=== PATIENT | female | born 1990 | race Caucasian/White ===

== ENCOUNTER 2017-05-31 20:33 | Day surgery (SDC) | payer BC ==
[2017-05-31] MEDS ORDERED: HYDROmorphone 0.5 MG/0.5 ML SYRINGE IVPUSH ONE (20:57)
[2017-05-31] MEDS ORDERED: Sodium Chloride 0.9% 10 ML Syringe FLUSH PRN ×2 (20:57→23:49)
[2017-05-31] MEDS ORDERED: Sodium Chloride 0.9% 1,000 ML IV ONE (20:57)
[2017-05-31] MEDS ORDERED: Ondansetron 4 MG/2 ML SDV IVPUSH ONE (20:58)
--- NOTE | 2017-05-31 21:13 | EDM.PDOC ---
ED HPI GENERAL MEDICAL PROBLEM - General Chief Complaint: Abdominal Pain Stated Complaint: RIGHT QUADRANT PAIN Time Seen by Provider: 05/31/17 20:59 Source of Information: Reports: Patient History Limitations: Reports: No Limitations - History of Present Illness INITIAL COMMENTS - FREE TEXT/NARRATIVE: Patient is a 27-year-old female presents ED complaining of right middle lower quadrant abdominal pain. Patient states pain started 2 days ago with no known provoking activities. Pain is described as sharp dull throbbing in nature. Increases with palpation, bending over, lifting her right leg, and walking. Pain is minimally improved with resting. She is mildly nauseated after eating. There has been no documented fever or diarrhea. She denies any pain with urination as well as any abnormal vaginal discharge. She has no history of kidney stones or recurrences. She is concerned that she may have appendicitis. Pain is moderate intensity at this point. Has not taken any medications for the discomfort. She has no additional past medical history and currently taking control pills. Last menstrual cycle was the end of this past month. Surgical history noncontributory. Right Abdominal Pain Score (Numeric/FACES): 4 - Related Data Allergies Allergy/AdvReac Type Severity Reaction Status Date / Time Sulfa (Sulfonamide Allergy Rash Verified 05/31/17 20:46 Antibiotics) Home Meds: Home Meds Levonorgestrel-Ethin Estradiol [Lessina-28 Tablet] 1 tab PO DAILY 05/31/17 [ History] Past Medical History - Past Surgical History Musculoskeletal Surgical History: Reports: Other (See Below) Other Musculoskeletal Surgeries/Procedures:: knee surgery Social & Family History - Family History Family Medical History: Noncontributory - Tobacco Use Smoking Status *Q: Never Smoker - Caffeine Use Caffeine Use: Reports: Coffee - Recreational Drug Use Recreational Drug Use: No ED ROS GENERAL - Review of Systems Review Of Systems: ROS reveals no pertinent complaints other than HPI. ED EXAM, GI/ABD - Physical Exam Exam: See Below Exam Limited By: No Limitations General Appearance: Alert, WD/WN, No Apparent Distress Ears: Hearing Grossly Normal Nose: Normal Inspection Throat/Mouth: Normal Inspection, Normal Oropharynx, Normal Voice, No Airway Compromise Neck: Normal Inspection, Supple Respiratory/Chest: No Respiratory Distress, Lungs Clear, Normal Breath Sounds, No Accessory Muscle Use Cardiovascular: Normal Peripheral Pulses, Regular Rate, Rhythm GI/Abdominal Exam: Normal Bowel Sounds, Soft, No Organomegaly, No Distention, Rebound (McBurney's point), Tender (McBurney's point). No: Guarding Back Exam: Normal Inspection Neurological: Alert, Oriented, CN II-XII Intact, Normal Cognition, No Motor/ Sensory Deficits Psychiatric: Normal Affect, Normal Mood Skin Exam: Warm, Dry, Intact, Normal Color Course - Vital Signs Last Recorded V/S: Last Vital Signs Temp 98.5 F 05/31/17 20:47 Pulse 65 05/31/17 20:47 Resp 18 05/31/17 20:47 BP 126/76 05/31/17 20:47 Pulse Ox 100 05/31/17 20:47 - Orders/Labs/Meds Orders: Active Orders 24 hr Category Date Time Status Peripheral IV Care [RC] . DIRECTED Care 05/31/17 20:57 Active Abdomen Pelvis w Cont [CT] Stat Exams 05/31/17 21:08 Taken Sodium Chloride 0.9% [Normal Saline] 1,000 ml Med 05/31/17 20:57 Active IV ONETIME Sodium Chloride 0.9% [Saline Flush] Med 05/31/17 20:57 Active 10 ml FLUSH ASDIRECTED PRN Peripheral IV Insertion Adult [OM.PC] Stat Oth 05/31/17 20:57 Ordered Medication Orders Sodium Chloride (Normal Saline) 1,000 mls @ 250 mls/hr IV ONETIME ONE Stop: 06/01/17 00:56 Last Admin: 05/31/17 21:31 Dose: 250 mls/hr Sodium Chloride (Saline Flush) 10 ml FLUSH ASDIRECTED PRN PRN Reason: Keep Vein Open Last Admin: 05/31/17 23:01 Dose: 10 ml Labs: Laboratory Tests 05/31/17 05/31/17 05/31/17 Range/Units 21:21 21:21 21:21 WBC 5.92 (3.98-10.04) K/mm3 RBC 4.04 (3.98-5.22) M/mm3 Hgb 12.1 (11.2-15.7) gm/L Hct 37.1 (34.1-44.9) % MCV 91.8 (79.4-94.8) fl MCH 30.0 (25.6-32.2) pg MCHC 32.6 (32.2-35.5) g/dl RDW Std Deviation 43.9 (36.4-46.3) fL Plt Count 268 (182-369) K/mm3 MPV 9.2 L (9.4-12.3) fl Neut % (Auto) 56.6 (34.0-71.1) % Lymph % (Auto) 31.8 (19.3-51.7) % Maverick % (Auto) 9.5 (4.7-12.5) % Eos % (Auto) 1.4 (0.7-5.8) Baso % (Auto) 0.7 (0.1-1.2) % Neut # (Auto) 3.36 (1.56-6.13) K/mm3 Lymph # (Auto) 1.88 (1.18-3.74) K/mm3 Maverick # (Auto) 0.56 H (0.24-0.36) K/mm3 Eos # (Auto) 0.08 (0.04-0.36) K/mm3 Baso # (Auto) 0.04 (0.01-0.08) K/mm3 Sodium 141 (136-145) mEq/L Potassium 3.8 (3.5-5.1) mEq/L Chloride 104 (98-107) mEq/L Carbon Dioxide 27 (21-32) mEq/L Anion Gap 13.8 (5-15) BUN 15 (7-18) mg/dL Creatinine 0.9 (0.55-1.02) mg/dL Est Cr Clr Drug Dosing 89.96 mL/min Estimated GFR (MDRD) > 60 (>60) mL/min BUN/Creatinine Ratio 16.7 (14-18) Glucose 96 (74-106) mg/dL Calcium 8.8 (8.5-10.1) mg/dL Total Bilirubin 0.3 (0.2-1.0) mg/dL AST 16 (15-37) U/L ALT 20 (14-59) U/L Alkaline Phosphatase 49 (46-116) U/L C-Reactive Protein 9.5 H* (<1.0) mg/dL Total Protein 7.1 (6.4-8.2) g/dl Albumin 3.2 L (3.4-5.0) g/dl Globulin 3.9 gm/dL Albumin/Globulin Ratio 0.8 L (1-2) HCG, Qual Negative (NEGATIVE) Urine Color (Yellow) Urine Appearance (Clear) Urine pH (5.0-8.0) Ur Specific [place] (1.005-1.030) Urine Protein (Negative) Urine Glucose (UA) (Negative) Urine Ketones (Negative) Urine Occult Blood (Negative) Urine Nitrite (Negative) Urine Bilirubin (Negative) Urine Urobilinogen (0.2-1.0) Ur Leukocyte Esterase (Negative) Urine RBC (0-5) /hpf Urine WBC (0-5) /hpf Ur Epithelial Cells (0-5) /hpf Urine Bacteria (FEW) /hpf Urine Mucus (FEW) /hpf 05/31/17 Range/Units 22:45 WBC (3.98-10.04) K/mm3 RBC (3.98-5.22) M/mm3 Hgb (11.2-15.7) gm/L Hct (34.1-44.9) % MCV (79.4-94.8) fl MCH (25.6-32.2) pg MCHC (32.2-35.5) g/dl RDW Std Deviation (36.4-46.3) fL Plt Count (182-369) K/mm3 MPV (9.4-12.3) fl Neut % (Auto) (34.0-71.1) % Lymph % (Auto) (19.3-51.7) % Maverick % (Auto) (4.7-12.5) % Eos % (Auto) (0.7-5.8) Baso % (Auto) (0.1-1.2) % Neut # (Auto) (1.56-6.13) K/mm3 Lymph # (Auto) (1.18-3.74) K/mm3 Ma[place]ick # (Auto) (0.24-0.36) K/mm3 Eos # (Auto) (0.04-0.36) K/mm3 Baso # (Auto) (0.01-0.08) K/mm3 Sodium (136-145) mEq/L Potassium (3.5-5.1) mEq/L Chloride (98-107) mEq/L Carbon Dioxide (21-32) mEq/L Anion Gap (5-15) BUN (7-18) mg/dL Creatinine (0.55-1.02) mg/dL Est Cr Clr Drug Dosing mL/min Estimated GFR (MDRD) (>60) mL/min BUN/Creatinine Ratio (14-18) Glucose (74-106) mg/dL Calcium (8.5-10.1) mg/dL Total Bilirubin (0.2-1.0) mg/dL AST (15-37) U/L ALT (14-59) U/L Alkaline Phosphatase (46-116) U/L C-Reactive Protein (<1.0) mg/dL Total Protein (6.4-8.2) g/dl Albumin (3.4-5.0) g/dl Globulin gm/dL Albumin/Globulin Ratio (1-2) HCG, Qual (NEGATIVE) Urine Color Light yellow (Yellow) Urine Appearance Clear (Clear) Urine pH 7.0 (5.0-8.0) Ur Specific [place] 1.015 (1.005-1.030) Urine Protein Negative (Negative) Urine Glucose (UA) Negative (Negative) Urine Ketones Negative (Negative) Urine Occult Blood Negative (Negative) Urine Nitrite Negative (Negative) Urine Bilirubin Negative (Negative) Urine Urobilinogen 0.2 (0.2-1.0) Ur Leukocyte Esterase Negative (Negative) Urine RBC 0-5 (0-5) /hpf Urine WBC 0-5 (0-5) /hpf Ur Epithelial Cells 0-5 (0-5) /hpf Urine Bacteria Few (FEW) /hpf Urine Mucus Not seen (FEW) /hpf Meds: Medications Generic Name Dose Route Start Last Admin Trade Name Freq PRN Reason Stop Dose Admin Sodium Chloride 1,000 mls @ 250 mls/hr 05/31/17 20:57 05/31/17 21:31 Normal Saline IV 06/01/17 00:56 250 mls/hr ONETIME ONE Administration Sodium Chloride 10 ml 05/31/17 20:57 05/31/17 23:01 Saline Flush FLUSH 10 ml ASDIRECTED PRN Administration Keep Vein Open Discontinued Medications Generic Name Dose Route Start Last Admin Trade Name Freq PRN Reason Stop Dose Admin Diatrizoate Meglum/Diatrizoate Sod 90 ml 05/31/17 22:46 05/31/17 23:01 Gastrografin 37% PO 05/31/17 22:47 90 ml ONETIME ONE Administration Hydromorphone HCl 0.5 mg 05/31/17 20:57 05/31/17 21:34 Dilaudid IVPUSH 05/31/17 20:58 0.5 mg ONETIME ONE Administration Hydromorphone HCl 0.5 mg 05/31/17 21:45 05/31/17 22:02 Dilaudid IVPUSH 05/31/17 21:46 Not Given ONETIME ONE Iopamidol 125 ml 05/31/17 22:46 05/31/17 23:01 Isovue-300 (61%) IVPUSH 05/31/17 22:47 125 ml ONETIME ONE Administration Ondansetron HCl 4 mg 05/31/17 20:58 05/31/17 21:32 Zofran IVPUSH 05/31/17 20:59 4 mg ONETIME ONE Administration - Re-Assessments/Exams Free Text/Narrative Re-Assessment/Exam: IV started with normal saline 250 mL per hour, 0.5 mg of Dilaudid IVP, and Zofran 4 mg IVP. Initial labs and studies include CBC, chem 14, CRP, hCG, UA. I have ordered a CT the abdomen and pelvis with oral and IV contrast. Oral contrast will be started Mealey. Patient has pain to the right lower quadrant along McBurney's point concerning for appendicitis. 05/31/17 22:47 Labs reviewed: CBC and chemistry panel essentially normal. CRP elevated 9.5. HCG was negative. 05/31/17 23:08 UA still pending. 05/31/17 23:36 [facility] Appendicitis no rupture. [id number] Valle network operations project manager general surgeon. He will be in shortly to see the patient. Requested OR Staff and anesthesia be contacted. Instructed nursing staff to make the phone calls. Ordered cefoxitin 2 g IV. Departure - Departure Time of Disposition: 23:44 Disposition: DC/Tfer to Critical Access 66 Condition: Fair Clinical Impression: Appendicitis Qualifiers: Appendicitis type: acute appendicitis Acute appendicitis type: with localized peritonitis Qualified Code(s): K35.3 - Acute appendicitis with localized peritonitis - Discharge Information Referrals: PCP,None [Primary Care Provider] - Forms: ED Department Discharge - My Orders Last 24 Hours: My Active Orders 05/31/17 20:57 Peripheral IV Care [RC] . DIRECTED Sodium Chloride 0.9% [Normal Saline] 1,000 ml IV ONETIME Sodium Chloride 0.9% [Saline Flush] 10 ml FLUSH ASDIRECTED PRN Peripheral IV Insertion Adult [OM.PC] Stat 05/31/17 21:08 Abdomen Pelvis w Cont [CT] Stat - Assessment/Plan Last 24 Hours: My Active Orders 05/31/17 20:57 Peripheral IV Care [RC] . DIRECTED Sodium Chloride 0.9% [Normal Saline] 1,000 ml IV ONETIME Sodium Chloride 0.9% [Saline Flush] 10 ml FLUSH ASDIRECTED PRN Peripheral IV Insertion Adult [OM.PC] Stat 05/31/17 21:08 Abdomen Pelvis w Cont [CT] Stat
[2017-05-31] MEDS ORDERED: HYDROmorphone 1 MG/ML Syringe IVPUSH ONE (21:45)
[2017-05-31] MEDS ORDERED: Iopamidol 612 MG/ML 150 ML Bottle IVPUSH ONE (22:46)
[2017-05-31] MEDS ORDERED: Diatrizoate Meglumine/Diatrizoate Sodium 37% 120 ML Bottle PO ONE (22:46)
[2017-05-31] MEDS ORDERED: cefOXitin 2 GM in Premix Bag 1 BAG IV ONE (23:43)
[2017-05-31] MEDS ORDERED: Sodium Chloride 0.9% 1,000 ML IV SCH (23:45)
[2017-06-01] MEDS ORDERED: Lidocaine 1% with EPINEPHrine 1:100,000 20 ML MDV ONE (00:11)
[2017-06-01] MEDS ORDERED: Bupivacaine 0.5%/EPINEPHrine 1:200,000 50 ML MDV ONE (00:11)
--- NOTE | 2017-06-01 00:16 | PCM.HP ---
H&P History of Present Illness - General Date of Service: 06/01/17 Source of Information: Patient, Family - History of Present Illness Initial Comments - Free Text/Narative: 27-year-old female was in her usual state of excellent health until 2 days ago when she experienced right lower quadrant abdominal discomfort. It was continuous over the next couple of days and associated with anorexia. But it was never really severe and so she ran 7 miles yesterday. Because of the persistent discomfort she presented to the emergency room and a CT scan of her abdomen and pelvis was performed. This revealed imaging features consistent with acute appendicitis. I was called to evaluate her for surgery. Right Abdominal Pain Score (Numeric/FACES): 4 - Related Data Allergies/Adverse Reactions: Allergies Allergy/AdvReac Type Severity Reaction Status Date / Time Sulfa (Sulfonamide Allergy Rash Verified 05/31/17 20:46 Antibiotics) Home Medications: Home Meds Levonorgestrel-Ethin Estradiol [Lessina-28 Tablet] 1 tab PO DAILY 05/31/17 [ History] Past Medical History - Past Surgical History Musculoskeletal Surgical History: Reports: Other (See Below) Other Musculoskeletal Surgeries/Procedures:: knee surgery Social & Family History - Family History Family Medical History: Noncontributory - Tobacco Use Smoking Status *Q: Never Smoker - Caffeine Use Caffeine Use: Reports: Coffee - Recreational Drug Use Recreational Drug Use: No H&P Review of Systems - Review of Systems: Review Of Systems: See Below Exam - Exam Exam: See Below - Vital Signs Vital Signs: Last Vital Signs Temp 36.9 C 05/31/17 20:47 Pulse 65 05/31/17 20:47 Resp 18 05/31/17 20:47 BP 126/76 05/31/17 20:47 Pulse Ox 100 05/31/17 20:47 Weight: 61.235 kg - Exam General: Alert, Oriented, Cooperative HEENT: EOMI, Hearing Intact Neck: Supple, Trachea Midline Lungs: Clear to Auscultation, Normal Respiratory Effort Cardiovascular: Regular Rate, Regular Rhythm, Normal S1, Normal S2 GI/Abdominal Exam: Normal Bowel Sounds, Tender (Right lower quadrant) (Female) Exam: Deferred Rectal (Female) Exam: Deferred Skin: Warm, Dry, Intact Neuro Extensive - Mental Status: Alert, Oriented x3, Normal Mood/Affect Psychiatric: Alert, Normal Affect, Normal Mood - Patient Data Lab Results Last 24 hrs: Laboratory Results - last 24 hr 05/31/17 05/31/17 05/31/17 Range/Units 21:21 21:21 21:21 WBC 5.92 (3.98-10.04) K/mm3 RBC 4.04 (3.98-5.22) M/mm3 Hgb 12.1 (11.2-15.7) gm/L Hct 37.1 (34.1-44.9) % MCV 91.8 (79.4-94.8) fl MCH 30.0 (25.6-32.2) pg MCHC 32.6 (32.2-35.5) g/dl RDW Std Deviation 43.9 (36.4-46.3) fL Plt Count 268 (182-369) K/mm3 MPV 9.2 L (9.4-12.3) fl Neut % (Auto) 56.6 (34.0-71.1) % Lymph % (Auto) 31.8 (19.3-51.7) % Emanuel % (Auto) 9.5 (4.7-12.5) % Eos % (Auto) 1.4 (0.7-5.8) Baso % (Auto) 0.7 (0.1-1.2) % Neut # (Auto) 3.36 (1.56-6.13) K/mm3 Lymph # (Auto) 1.88 (1.18-3.74) K/mm3 Emanuel # (Auto) 0.56 H (0.24-0.36) K/mm3 Eos # (Auto) 0.08 (0.04-0.36) K/mm3 Baso # (Auto) 0.04 (0.01-0.08) K/mm3 Sodium 141 (136-145) mEq/L Potassium 3.8 (3.5-5.1) mEq/L Chloride 104 (98-107) mEq/L Carbon Dioxide 27 (21-32) mEq/L Anion Gap 13.8 (5-15) BUN 15 (7-18) mg/dL Creatinine 0.9 (0.55-1.02) mg/dL Est Cr Clr Drug Dosing 89.96 mL/min Estimated GFR (MDRD) > 60 (>60) mL/min BUN/Creatinine Ratio 16.7 (14-18) Glucose 96 (74-106) mg/dL Calcium 8.8 (8.5-10.1) mg/dL Total Bilirubin 0.3 (0.2-1.0) mg/dL AST 16 (15-37) U/L ALT 20 (14-59) U/L Alkaline Phosphatase 49 (46-116) U/L C-Reactive Protein 9.5 H* (<1.0) mg/dL Total Protein 7.1 (6.4-8.2) g/dl Albumin 3.2 L (3.4-5.0) g/dl Globulin 3.9 gm/dL Albumin/Globulin Ratio 0.8 L (1-2) HCG, Qual Negative (NEGATIVE) Urine Color (Yellow) Urine Appearance (Clear) Urine pH (5.0-8.0) Ur Specific [place] (1.005-1.030) Urine Protein (Negative) Urine Glucose (UA) (Negative) Urine Ketones (Negative) Urine Occult Blood (Negative) Urine Nitrite (Negative) Urine Bilirubin (Negative) Urine Urobilinogen (0.2-1.0) Ur Leukocyte Esterase (Negative) Urine RBC (0-5) /hpf Urine WBC (0-5) /hpf Ur Epithelial Cells (0-5) /hpf Urine Bacteria (FEW) /hpf Urine Mucus (FEW) /hpf 05/31/17 Range/Units 22:45 WBC (3.98-10.04) K/mm3 RBC (3.98-5.22) M/mm3 Hgb (11.2-15.7) gm/L Hct (34.1-44.9) % MCV (79.4-94.8) fl MCH (25.6-32.2) pg MCHC (32.2-35.5) g/dl RDW Std Deviation (36.4-46.3) fL Plt Count (182-369) K/mm3 MPV (9.4-12.3) fl Neut % (Auto) (34.0-71.1) % Lymph % (Auto) (19.3-51.7) % Emanuel % (Auto) (4.7-12.5) % Eos % (Auto) (0.7-5.8) Baso % (Auto) (0.1-1.2) % Neut # (Auto) (1.56-6.13) K/mm3 Lymph # (Auto) (1.18-3.74) K/mm3 Emanuel # (Auto) (0.24-0.36) K/mm3 Eos # (Auto) (0.04-0.36) K/mm3 Baso # (Auto) (0.01-0.08) K/mm3 Sodium (136-145) mEq/L Potassium (3.5-5.1) mEq/L Chloride (98-107) mEq/L Carbon Dioxide (21-32) mEq/L Anion Gap (5-15) BUN (7-18) mg/dL Creatinine (0.55-1.02) mg/dL Est Cr Clr Drug Dosing mL/min Estimated GFR (MDRD) (>60) mL/min BUN/Creatinine Ratio (14-18) Glucose (74-106) mg/dL Calcium (8.5-10.1) mg/dL Total Bilirubin (0.2-1.0) mg/dL AST (15-37) U/L ALT (14-59) U/L Alkaline Phosphatase (46-116) U/L C-Reactive Protein (<1.0) mg/dL Total Protein (6.4-8.2) g/dl Albumin (3.4-5.0) g/dl Globulin gm/dL Albumin/Globulin Ratio (1-2) HCG, Qual (NEGATIVE) Urine Color Light yellow (Yellow) Urine Appearance Clear (Clear) Urine pH 7.0 (5.0-8.0) Ur Specific [place] 1.015 (1.005-1.030) Urine Protein Negative (Negative) Urine Glucose (UA) Negative (Negative) Urine Ketones Negative (Negative) Urine Occult Blood Negative (Negative) Urine Nitrite Negative (Negative) Urine Bilirubin Negative (Negative) Urine Urobilinogen 0.2 (0.2-1.0) Ur Leukocyte Esterase Negative (Negative) Urine RBC 0-5 (0-5) /hpf Urine WBC 0-5 (0-5) /hpf Ur Epithelial Cells 0-5 (0-5) /hpf Urine Bacteria Few (FEW) /hpf Urine Mucus Not seen (FEW) /hpf Result Diagrams: 05/31/17 21:21 05/31/17 21:21 *Q Meaningful Use (ADM) - VTE *Q VTE Criteria *Q: - Stroke *Q Stroke Criteria *Q: - AMI *Q AMI Criteria *Q: - Problem List (1) Appendicitis SNOMED Code(s): 51215128 ICD Code: K37 - UNSPECIFIED APPENDICITIS Status: Acute Current Visit: Yes Qualifiers: Appendicitis type: acute appendicitis Acute appendicitis type: with localized peritonitis Qualified Code(s): K35.3 - Acute appendicitis with localized peritonitis Problem List Initiated/Reviewed/Updated: Yes Orders Last 24hrs: Active Orders 24 hr Category Date Time Status Antiembolic Devices [RC] PER UNIT ROUTINE Care 05/31/17 23:51 Active Patient to Empty Bladder [RC] ASDIRECTED Care 05/31/17 23:49 Active Peripheral IV Care [RC] . DIRECTED Care 05/31/17 20:57 Active Peripheral IV Care [RC] . DIRECTED Care 05/31/17 23:51 Active Verify Patient Consent Obtain [RC] ASDIRECTED Care 05/31/17 23:49 Active Nothing Per Oral Diet [DIET] Diet 05/31/17 Dinner Active Abdomen Pelvis w Cont [CT] Stat Exams 05/31/17 21:08 Taken Sodium Chloride 0.9% [Normal Saline] 1,000 ml Med 05/31/17 23:45 Active IV ASDIRECTED Sodium Chloride 0.9% [Normal Saline] 1,000 ml Med 05/31/17 20:57 Active IV ONETIME Sodium Chloride 0.9% [Saline Flush] Med 05/31/17 20:57 Active 10 ml FLUSH ASDIRECTED PRN Peripheral IV Insertion Adult [OM.PC] Routine Oth 05/31/17 23:49 Ordered Peripheral IV Insertion Adult [OM.PC] Stat Oth 05/31/17 20:57 Ordered Schedule Procedure [COMM] Routine Oth 05/31/17 23:49 Ordered Sequential Compression Device [OM.PC] Routine Oth 05/31/17 23:49 Ordered Resuscitation Status Routine Resus Stat 05/31/17 23:49 Ordered Medication Orders Sodium Chloride (Normal Saline) 1,000 mls @ 250 mls/hr IV ONETIME ONE Stop: 06/01/17 00:56 Last Admin: 05/31/17 21:31 Dose: 250 mls/hr Sodium Chloride (Normal Saline) 1,000 mls @ 125 mls/hr IV ASDIRECTED HIEU Sodium Chloride (Saline Flush) 10 ml FLUSH ASDIRECTED PRN PRN Reason: Keep Vein Open Last Admin: 05/31/17 23:01 Dose: 10 ml Assessment/Plan Comment:: Acute appendicitis. I have recommended appendectomy. There is a possibility that the patient may have to stay for several days depending on the findings at surgery. I made her aware of this as well as a family and they wanted me to proceed after having all of their questions answered.
[2017-06-01] MEDS ORDERED: fentaNYL 250 MCG/5 ML SDV ONE (00:27)
[2017-06-01] MEDS ORDERED: Rocuronium 50 MG/5 ML Vial ONE (00:27)
[2017-06-01] MEDS ORDERED: Ondansetron 4 MG/2 ML SDV ONE (00:27)
[2017-06-01] MEDS ORDERED: Propofol 200 MG/20 ML SDV ONE (00:27)
[2017-06-01] MEDS ORDERED: Lidocaine 1% 4 ML ONE (00:27)
[2017-06-01] MEDS ORDERED: Midazolam 1 MG/ML 2 ML SDV ONE (00:27)
--- NOTE | 2017-06-01 00:27 | PCM.PREANE ---
Preanesthetic Assessment - Anesthesia/Transfusion/Family Hx Anesthesia History: Prior Anesthesia Without Reaction Family History of Anesthesia Reaction: No Transfusion History: No Prior Transfusion(s) - Review of Systems General: No Symptoms Pulmonary: No Symptoms Cardiovascular: No Symptoms Gastrointestinal: No Symptoms Neurological: No Symptoms Other: Reports: None - Physical Assessment NPO Status Date: 05/31/17 NPO Status Time: 19:00 Pulse: 65 O2 Sat by Pulse Oximetry: 100 Respiratory Rate: 18 Blood Pressure: 126/76 Temperature: 36.9 C Vital Signs: Last Vital Signs Temp 36.9 C 05/31/17 20:47 Pulse 65 05/31/17 20:47 Resp 18 05/31/17 20:47 BP 126/76 05/31/17 20:47 Pulse Ox 100 05/31/17 20:47 Height: 1.78 m Weight: 61.235 kg ASA Class: 1E Mental Status: Alert & Oriented x3 Airway Class: Mallampati = 1 Dentition: Reports: Normal Dentition Thyro-Mental Finger Breadths: 3 Mouth Opening Finger Breadths: 3 ROM/Head Extension: Full Lungs: Clear to Auscultation, Normal Respiratory Effort Cardiovascular: Regular Rate, Regular Rhythm - Lab Values: Laboratory Last Values WBC 5.92 K/mm3 (3.98-10.04) 05/31/17 21:21 RBC 4.04 M/mm3 (3.98-5.22) 05/31/17 21:21 Hgb 12.1 gm/L (11.2-15.7) 05/31/17 21:21 Hct 37.1 % (34.1-44.9) 05/31/17 21:21 MCV 91.8 fl (79.4-94.8) 05/31/17 21:21 MCH 30.0 pg (25.6-32.2) 05/31/17 21:21 MCHC 32.6 g/dl (32.2-35.5) 05/31/17 21:21 RDW Std Deviation 43.9 fL (36.4-46.3) 05/31/17 21:21 Plt Count 268 K/mm3 (182-369) 05/31/17 21:21 MPV 9.2 fl (9.4-12.3) L 05/31/17 21:21 Neut % (Auto) 56.6 % (34.0-71.1) 05/31/17 21:21 Lymph % (Auto) 31.8 % (19.3-51.7) 05/31/17 21:21 [place] % (Auto) 9.5 % (4.7-12.5) 05/31/17 21:21 Eos % (Auto) 1.4 (0.7-5.8) 05/31/17 21:21 Baso % (Auto) 0.7 % (0.1-1.2) 05/31/17 21:21 Neut # (Auto) 3.36 K/mm3 (1.56-6.13) 05/31/17 21:21 Lymph # (Auto) 1.88 K/mm3 (1.18-3.74) 05/31/17 21:21 [place] # (Auto) 0.56 K/mm3 (0.24-0.36) H 05/31/17 21:21 Eos # (Auto) 0.08 K/mm3 (0.04-0.36) 05/31/17 21:21 Baso # (Auto) 0.04 K/mm3 (0.01-0.08) 05/31/17 21:21 Sodium 141 mEq/L (136-145) 05/31/17 21:21 Potassium 3.8 mEq/L (3.5-5.1) 05/31/17 21:21 Chloride 104 mEq/L (98-107) 05/31/17 21:21 Carbon Dioxide 27 mEq/L (21-32) 05/31/17 21:21 Anion Gap 13.8 (5-15) 05/31/17 21:21 BUN 15 mg/dL (7-18) 05/31/17 21:21 Creatinine 0.9 mg/dL (0.55-1.02) 05/31/17 21:21 Est Cr Clr Drug Dosing 89.96 mL/min 05/31/17 21:21 Estimated GFR (MDRD) > 60 mL/min (>60) 05/31/17 21:21 BUN/Creatinine Ratio 16.7 (14-18) 05/31/17 21:21 Glucose 96 mg/dL (74-106) 05/31/17 21:21 Calcium 8.8 mg/dL (8.5-10.1) 05/31/17 21:21 Total Bilirubin 0.3 mg/dL (0.2-1.0) 05/31/17 21:21 AST 16 U/L (15-37) 05/31/17 21:21 ALT 20 U/L (14-59) 05/31/17 21:21 Alkaline Phosphatase 49 U/L (46-116) 05/31/17 21:21 C-Reactive Protein 9.5 mg/dL (<1.0) H* 05/31/17 21:21 Total Protein 7.1 g/dl (6.4-8.2) 05/31/17 21:21 Albumin 3.2 g/dl (3.4-5.0) L 05/31/17 21:21 Globulin 3.9 gm/dL 05/31/17 21: Albumin/Globulin Ratio 0.8 (1-2) L 05/31/17 21:21 HCG, Qual Negative (NEGATIVE) 05/31/17 21:21 Urine Color Light yellow (Yellow) 05/31/17 22:45 Urine Appearance Clear (Clear) 05/31/17 22:45 Urine pH 7.0 (5.0-8.0) 05/31/17 22:45 Ur Specific [place] 1.015 (1.005-1.030) 05/31/17 22:45 Urine Protein Negative (Negative) 05/31/17 22:45 Urine Glucose (UA) Negative (Negative) 05/31/17 22:45 Urine Ketones Negative (Negative) 05/31/17 22:45 Urine Occult Blood Negative (Negative) 05/31/17 22:45 Urine Nitrite Negative (Negative) 05/31/17 22:45 Urine Bilirubin Negative (Negative) 05/31/17 22:45 Urine Urobilinogen 0.2 (0.2-1.0) 05/31/17 22:45 Ur Leukocyte Esterase Negative (Negative) 05/31/17 22:45 Urine RBC 0-5 /hpf (0-5) 05/31/17 22:45 Urine WBC 0-5 /hpf (0-5) 05/31/17 22:45 Ur Epithelial Cells 0-5 /hpf (0-5) 05/31/17 22:45 Urine Bacteria Few /hpf (FEW) 05/31/17 22:45 Urine Mucus Not seen /hpf (FEW) 02/12/18 22:45 - Allergies Allergies/Adverse Reactions: Allergies Allergy/AdvReac Type Severity Reaction Status Date / Time Sulfa (Sulfonamide Allergy Rash Verified 05/31/17 20:46 Antibiotics) - Blood Blood Available: No Product(s) Available: None - Anesthesia Plan Pre-Op Medication Ordered: None - Acknowledgements Anesthesia Type Planned: General Anesthesia Pt an Appropriate Candidate for the Planned Anesthesia: Yes Alternatives and Risks of Anesthesia Discussed w Pt/Guardian: Yes Pt/Guardian Understands and Agrees with Anesthesia Plan: Yes PreAnesthesia Questionnaire - Past Surgical History Musculoskeletal Surgical History: Reports: Other (See Below) Other Musculoskeletal Surgeries/Procedures:: knee surgery - SUBSTANCE USE Smoking Status *Q: Never Smoker Tobacco Use Within Last Twelve Months: No Second Hand Smoke Exposure: No Days Per Week of Alcohol Use: 0 Number of Drinks Per Day: 0 Total Drinks Per Week: 0 Recreational Drug Use History: No - HOME MEDS Home Medications: Home Meds Levonorgestrel-Ethin Estradiol [Lessina-28 Tablet] 1 tab PO DAILY 05/31/17 [ History] - CURRENT (IN HOUSE) MEDS Current Meds: Current Medications Sodium Chloride (Normal Saline) 1,000 mls @ 250 mls/hr IV ONETIME ONE Stop: 06/01/17 00:56 Last Admin: 05/31/17 21:31 Dose: 250 mls/hr Sodium Chloride (Normal Saline) 1,000 mls @ 125 mls/hr IV ASDIRECTED HIEU Sodium Chloride (Saline Flush) 10 ml FLUSH ASDIRECTED PRN PRN Reason: Keep Vein Open Last Admin: 05/31/17 23:01 Dose: 10 ml Discontinued Medications Diatrizoate Meglum/Diatrizoate Sod (Gastrografin 37%) 90 ml PO ONETIME ONE Stop: 05/31/17 22:47 Last Admin: 05/31/17 23:01 Dose: 90 ml Fentanyl (Sublimaze) Confirm Administered Dose 250 mcg .ROUTE .STK-MED ONE Stop: 06/01/17 00:28 Hydromorphone HCl (Dilaudid) 0.5 mg IVPUSH ONETIME ONE Stop: 05/31/17 20:58 Last Admin: 05/31/17 21:34 Dose: 0.5 mg Hydromorphone HCl (Dilaudid) 0.5 mg IVPUSH ONETIME ONE Stop: 05/31/17 21:46 Last Admin: 05/31/17 22:02 Dose: Not Given Cefoxitin Sodium 2 gm/ Premix 50 mls @ 100 mls/hr IV ONETIME ONE Stop: 06/01/17 00:12 Last Admin: 06/01/17 00:03 Dose: 100 mls/hr Lidocaine HCl (Xylocaine-Mpf 1%) Confirm Administered Dose 4 mls @ as directed .ROUTE .STK-MED ONE Stop: 06/01/17 00:28 Iopamidol (Isovue-300 (61%)) 125 ml IVPUSH ONETIME ONE Stop: 05/31/17 22:47 Last Admin: 05/31/17 23:01 Dose: 125 ml Midazolam HCl (Versed 1 Mg/Ml) Confirm Administered Dose 2 mg .ROUTE .STK-MED ONE Stop: 06/01/17 00:28 Ondansetron HCl (Zofran) 4 mg IVPUSH ONETIME ONE Stop: 05/31/17 20:59 Last Admin: 05/31/17 21:32 Dose: 4 mg Ondansetron HCl (Zofran) Confirm Administered Dose 4 mg .ROUTE .STK-MED ONE Stop: 06/01/17 00:28 Propofol (Diprivan 20 Ml) Confirm Administered Dose 200 mg .ROUTE .STK-MED ONE Stop: 06/01/17 00:28 Rocuronium [place] (Zemuron) Confirm Administered Dose 50 mg .ROUTE .STK-MED ONE Stop: 06/01/17 00:28 Sodium Chloride (Saline Flush) 10 ml FLUSH ASDIRECTED PRN PRN Reason: Keep Vein Open
[2017-06-01] MEDS ORDERED: Lactated Ringers 1,000 ML ONE ×2 (01:21→01:23)
[2017-06-01] MEDS ORDERED: HYDROmorphone 0.5 MG/0.5 ML SYRINGE IV PRN (01:50)
--- NOTE | 2017-06-01 01:50 | PCM.OPNOTE ---
- General Post-Op/Procedure Note Date of Surgery/Procedure: 06/01/17 Operative Procedure(s): Laparoscopic appendectomy Findings: Retro-cecal acutely inflamed appendix with no perforation ischemia or gangrene. There was no suppuration. Pre Op Diagnosis: Acute appendicitis Post-Op Diagnosis: Same Anesthesia Technique: General ET Tube, Local Primary Surgeon: Gt Valle Pathology: Appendix EBL in mLs: 5 Complications: None Condition: Good Free Text/Narrative:: After adequate general endotracheal tube anesthesia was obtained the patient's abdomen was prepped and draped for a laparoscopic appendectomy. After local analgesia was given a 15 blade was used to make an incision above the umbilicus. The abdomen was entered sharply followed by insertion of a 12 mm camera port. CO2 pneumoperitoneum was obtained at this point. A 5 mm working port was placed in the suprapubic region and in the left lower quadrant after local analgesia. Exploration revealed a retrocecal appendix which was distended and indurated. I mobilized the cecum by taking down the white line sharply. I then used the suction domain architect to tease away the posterior cecum away from its attachments. I found the base of the appendix and made a window in the mesentery. A staple load was fired across the base. I then was able to dissect the base away from the surface of the cecum and then fired 2 loads across the rest of the appendiceal mesentery at this point. The specimen was placed in a bag and removed through the umbilicus. I irrigated out the right lower quadrant with saline. I decannulated the abdomen under direct vision with no bleeding from the port sites. The camera port site was closed with a [id number] Vicryl. The subcutaneous tissues and skin were closed Vicryl as well. Steri- Strips and gauze were used for the dressing.
[2017-06-01] MEDS ORDERED: Ondansetron 4 MG/2 ML SDV IVPUSH PRN (01:51)
[2017-06-01] MEDS ORDERED: Acetaminophen/oxyCODONE 325-5 MG Tab PO PRN (01:52)
[2017-06-01] MEDS ORDERED: fentaNYL 250 MCG/5 ML SDV IVPUSH PRN (01:56)
--- NOTE | 2017-06-01 01:58 | PCM.POSTAN ---
POST ANESTHESIA ASSESSMENT - MENTAL STATUS Mental Status: Alert, Oriented - VITAL SIGNS Pulse Rate: 95 SaO2: 95 Resp Rate: 13 Blood Pressure: 107/58 Temperature: 37.1 C - RESPIRATORY Respiratory Status: Respiratory Rate WNL, Airway Patent, O2 Saturation Stable, Supplemental Oxygen - CARDIOVASCULAR CV Status: Pulse Rate WNL, Blood Pressure Stable - GASTROINTESTINAL GI Status: No Symptoms - PAIN Pain Score: 3 - POST OP HYDRATION Hydration Status: Adequate & Stable - OBSERVATIONS Free Text/Narrative:: no anesthesia complications noted
[2017-06-01] MEDS: fentaNYL 100 MCG/2 ML SDV ONE ×2 (02:05→03:43)
[2017-06-01] MEDS ORDERED: fentaNYL 100 MCG/2 ML SDV ONE (02:06)
[2017-06-01] MEDS ORDERED: HYDROmorphone 0.5 MG/0.5 ML Syringe ONE (02:20)
[2017-06-01] MEDS ORDERED: diphenhydrAMINE 50 MG/ML SDV ONE (02:26)
[2017-06-01] MEDS ORDERED: HYDROmorphone 0.5 MG/0.5 ML Syringe IVPUSH ONE (02:29)
[2017-06-01] MEDS ORDERED: diphenhydrAMINE 50 MG/ML SDV IVPUSH ONE (02:51)
[2017-06-01] MEDS ORDERED: Lactated Ringers 1,000 ML IV SCH ×2 (03:00)
[2017-06-01] MEDS ORDERED: cefOXitin 2 GM in Premix Bag 1 BAG IV SCH (06:00)
--- NOTE | 2017-06-01 07:13 | CT ---
CT abdomen and pelvis Technique: Multiple axial sections were obtained from above the dome of the diaphragm inferiorly through the pubic symphysis. Intravenous and oral contrast was utilized. Delayed images were also obtained through the abdomen and pelvis. Comparison: No prior abdominal imaging. Findings: Appendix is dilated and shows surrounding inflammatory change compatible with appendicitis. Visualized lung bases are clear. Liver shows no focal parenchymal abnormality. Spleen appears within normal limits. Adrenal glands show no nodule. Kidneys show symmetric contrast enhancement without hydronephrosis or mass. Pancreas is within normal limits. Gallbladder contains no calcified gallstones. Aorta shows no aneurysmal dilatation. No retroperitoneal adenopathy or mesenteric abnormalities are seen. No pelvic mass or adenopathy is seen. No free fluid is identified. Bone window settings were reviewed which appear within normal limits for the patient's age. Impression: 1. Findings compatible with appendicitis as noted above. 2. No additional abnormality is identified on CT study of the abdomen and pelvis. Diagnostic code #5 Agree with preliminary report issued by [facility] ([facility] preliminary report dictated on 06/01/17, 12:39 AM Central Time)
--- NOTE | 2017-06-01 07:33 | PCM.SURGPN ---
- General Info Date of Service: 06/01/17 Functional Status: Reports: Pain Controlled, Tolerating Diet, Ambulating, Urinating - Review of Systems Gastrointestinal: Reports: Abdominal Pain (Complains of periumbilical incisional discomfort. Her right lower quadrant pain has resolved.) - Patient Data Vitals - Most Recent: Last Vital Signs Temp 36.8 C 06/01/17 04:41 Pulse 67 06/01/17 04:41 Resp 17 06/01/17 04:41 BP 104/62 06/01/17 04:41 Pulse Ox 100 06/01/17 04:41 Weight - Most Recent: 61.235 kg I&O - Last 24 Hours: Intake & Output 05/31/17 06/01/17 06/01/17 22:59 06:59 14:59 Intake Total 700 Output Total 750 Balance -50 Lab Results Last 24 Hrs: Laboratory Results - last 24 hr 05/31/17 05/31/17 05/31/17 Range/Units 21:21 21:21 21:21 WBC 5.92 (3.98-10.04) K/mm3 RBC 4.04 (3.98-5.22) M/mm3 Hgb 12.1 (11.2-15.7) gm/L Hct 37.1 (34.1-44.9) % MCV 91.8 (79.4-94.8) fl MCH 30.0 (25.6-32.2) pg MCHC 32.6 (32.2-35.5) g/dl RDW Std Deviation 43.9 (36.4-46.3) fL Plt Count 268 (182-369) K/mm3 MPV 9.2 L (9.4-12.3) fl Neut % (Auto) 56.6 (34.0-71.1) % Lymph % (Auto) 31.8 (19.3-51.7) % [place] % (Auto) 9.5 (4.7-12.5) % Eos % (Auto) 1.4 (0.7-5.8) Baso % (Auto) 0.7 (0.1-1.2) % Neut # (Auto) 3.36 (1.56-6.13) K/mm3 Lymph # (Auto) 1.88 (1.18-3.74) K/mm3 [place] # (Auto) 0.56 H (0.24-0.36) K/mm3 Eos # (Auto) 0.08 (0.04-0.36) K/mm3 Baso # (Auto) 0.04 (0.01-0.08) K/mm3 Sodium 141 (136-145) mEq/L Potassium 3.8 (3.5-5.1) mEq/L Chloride 104 (98-107) mEq/L Carbon Dioxide 27 (21-32) mEq/L Anion Gap 13.8 (5-15) BUN 15 (7-18) mg/dL Creatinine 0.9 (0.55-1.02) mg/dL Est Cr Clr Drug Dosing 89.96 mL/min Estimated GFR (MDRD) > 60 (>60) mL/min BUN/Creatinine Ratio 16.7 (14-18) Glucose 96 (74-106) mg/dL Calcium 8.8 (8.5-10.1) mg/dL Total Bilirubin 0.3 (0.2-1.0) mg/dL AST 16 (15-37) U/L ALT 20 (14-59) U/L Alkaline Phosphatase 49 (46-116) U/L C-Reactive Protein 9.5 H* (<1.0) mg/dL Total Protein 7.1 (6.4-8.2) g/dl Albumin 3.2 L (3.4-5.0) g/dl Globulin 3.9 gm/dL Albumin/Globulin Ratio 0.8 L (1-2) HCG, Qual Negative (NEGATIVE) Urine Color (Yellow) Urine Appearance (Clear) Urine pH (5.0-8.0) Ur Specific [place] (1.005-1.030) Urine Protein (Negative) Urine Glucose (UA) (Negative) Urine Ketones (Negative) Urine Occult Blood (Negative) Urine Nitrite (Negative) Urine Bilirubin (Negative) Urine Urobilinogen (0.2-1.0) Ur Leukocyte Esterase (Negative) Urine RBC (0-5) /hpf Urine WBC (0-5) /hpf Ur Epithelial Cells (0-5) /hpf Urine Bacteria (FEW) /hpf Urine Mucus (FEW) /hpf 05/31/17 Range/Units 22:45 WBC (3.98-10.04) K/mm3 RBC (3.98-5.22) M/mm3 Hgb (11.2-15.7) gm/L Hct (34.1-44.9) % MCV (79.4-94.8) fl MCH (25.6-32.2) pg MCHC (32.2-35.5) g/dl RDW Std Deviation (36.4-46.3) fL Plt Count (182-369) K/mm3 MPV (9.4-12.3) fl Neut % (Auto) (34.0-71.1) % Lymph % (Auto) (19.3-51.7) % [place] % (Auto) (4.7-12.5) % Eos % (Auto) (0.7-5.8) Baso % (Auto) (0.1-1.2) % Neut # (Auto) (1.56-6.13) K/mm3 Lymph # (Auto) (1.18-3.74) K/mm3 [place] # (Auto) (0.24-0.36) K/mm3 Eos # (Auto) (0.04-0.36) K/mm3 Baso # (Auto) (0.01-0.08) K/mm3 Sodium (136-145) mEq/L Potassium (3.5-5.1) mEq/L Chloride (98-107) mEq/L Carbon Dioxide (21-32) mEq/L Anion Gap (5-15) BUN (7-18) mg/dL Creatinine (0.55-1.02) mg/dL Est Cr Clr Drug Dosing mL/min Estimated GFR (MDRD) (>60) mL/min BUN/Creatinine Ratio (14-18) Glucose (74-106) mg/dL Calcium (8.5-10.1) mg/dL Total Bilirubin (0.2-1.0) mg/dL AST (15-37) U/L ALT (14-59) U/L Alkaline Phosphatase (46-116) U/L C-Reactive Protein (<1.0) mg/dL Total Protein (6.4-8.2) g/dl Albumin (3.4-5.0) g/dl Globulin gm/dL Albumin/Globulin Ratio (1-2) HCG, Qual (NEGATIVE) Urine Color Light yellow (Yellow) Urine Appearance Clear (Clear) Urine pH 7.0 (5.0-8.0) Ur Specific [place] 1.015 (1.005-1.030) Urine Protein Negative (Negative) Urine Glucose (UA) Negative (Negative) Urine Ketones Negative (Negative) Urine Occult Blood Negative (Negative) Urine Nitrite Negative (Negative) Urine Bilirubin Negative (Negative) Urine Urobilinogen 0.2 (0.2-1.0) Ur Leukocyte Esterase Negative (Negative) Urine RBC 0-5 (0-5) /hpf Urine WBC 0-5 (0-5) /hpf Ur Epithelial Cells 0-5 (0-5) /hpf Urine Bacteria Few (FEW) /hpf Urine Mucus Not seen (FEW) /hpf Med Orders - Current: Current Medications Fentanyl (Sublimaze) 50 mcg IVPUSH Q5M PRN PRN Reason: PAIN Last Admin: 06/01/17 02:05 Dose: 50 mcg Hydromorphone HCl (Dilaudid) 0.5 mg IV Q2H PRN PRN Reason: Pain Sodium Chloride (Normal Saline) 1,000 mls @ 125 mls/hr IV ASDIRECTED [facility] Cefoxitin Sodium 2 gm/ Premix 50 mls @ 100 mls/hr IV Q6HR [facility] Last Admin: 06/01/17 05:49 Dose: 100 mls/hr Lactated Ringer's (Ringers, Lactated) 1,000 mls @ 125 mls/hr IV ASDIRECTED [facility] Last Admin: 06/01/17 02:30 Dose: 125 mls/hr Ondansetron HCl (Zofran) 4 mg IVPUSH Q6H PRN PRN Reason: Nausea Oxycodone/Acetaminophen (Percocet 325-5 Mg) 1 tab PO Q4H PRN PRN Reason: Pain Last Admin: 06/01/17 04:47 Dose: 1 tab Sodium Chloride (Saline Flush) 10 ml FLUSH ASDIRECTED PRN PRN Reason: Keep Vein Open Last Admin: 05/31/17 23:01 Dose: 10 ml Discontinued Medications Bupivacaine HCl/Epinephrine Bitart (Marcaine 0.5%/Epinephrine 1:200,000) Confirm Administered Dose 50 ml .ROUTE .STK-MED ONE Stop: 06/01/17 00:12 Last Admin: 06/01/17 00:55 Dose: 5 ml Diatrizoate Meglum/Diatrizoate Sod (Gastrografin 37%) 90 ml PO ONETIME ONE Stop: 05/31/17 22:47 Last Admin: 05/31/17 23:01 Dose: 90 ml Diphenhydramine HCl (Benadryl) Confirm Administered Dose 50 mg .ROUTE .STK-MED ONE Stop: 06/01/17 02:27 Last Admin: 06/01/17 02:30 Dose: 25 mg Diphenhydramine HCl (Benadryl) 25 mg IVPUSH ONETIME ONE Stop: 06/01/17 02:52 Last Admin: 06/01/17 03:44 Dose: Not Given Fentanyl (Sublimaze) Confirm Administered Dose 250 mcg .ROUTE .STK-MED ONE Stop: 06/01/17 00:28 Fentanyl (Sublimaze) Confirm Administered Dose 100 mcg .ROUTE .STK-MED ONE Stop: 06/01/17 02:00 Last Admin: 06/01/17 03:43 Dose: Not Given Fentanyl (Sublimaze) Confirm Administered Dose 100 mcg .ROUTE .STK-MED ONE Stop: 06/01/17 02:07 Last Admin: 06/01/17 03:44 Dose: Not Given Hydromorphone HCl (Dilaudid) 0.5 mg IVPUSH ONETIME ONE Stop: 05/31/17 20:58 Last Admin: 05/31/17 21:34 Dose: 0.5 mg Hydromorphone HCl (Dilaudid) 0.5 mg IVPUSH ONETIME ONE Stop: 05/31/17 21:46 Last Admin: 05/31/17 22:02 Dose: Not Given Hydromorphone HCl (Dilaudid) Confirm Administered Dose 0.5 mg .ROUTE .STK-MED ONE Stop: 06/01/17 02:21 Last Admin: 06/01/17 03:44 Dose: Not Given Hydromorphone HCl (Dilaudid) 0.5 mg IVPUSH ONETIME ONE Stop: 06/01/17 02:30 Last Admin: 06/01/17 02:30 Dose: 0.5 mg Sodium Chloride (Normal Saline) 1,000 mls @ 250 mls/hr IV ONETIME ONE Stop: 06/01/17 00:56 Last Admin: 05/31/17 21:31 Dose: 250 mls/hr Cefoxitin Sodium 2 gm/ Premix 50 mls @ 100 mls/hr IV ONETIME ONE Stop: 06/01/17 00:12 Last Admin: 06/01/17 00:03 Dose: 100 mls/hr Lidocaine HCl (Xylocaine-Mpf 1%) Confirm Administered Dose 4 mls @ as directed .ROUTE .STK-MED ONE Stop: 06/01/17 00:28 Lactated Ringer's (Ringers, Lactated) Confirm Administered Dose 1,000 mls @ as directed .ROUTE .STK-MED ONE Stop: 06/01/17 01:22 Lactated Ringer's (Ringers, Lactated) Confirm Administered Dose 1,000 mls @ as directed .ROUTE .STK-MED ONE Stop: 06/01/17 01:24 Lactated Ringer's (Ringers, Lactated) 1,000 mls @ 125 mls/hr IV ASDIRECTED HIEU Iopamidol (Isovue-300 (61%)) 125 ml IVPUSH ONETIME ONE Stop: 05/31/17 22:47 Last Admin: 05/31/17 23:01 Dose: 125 ml Lidocaine/Epinephrine (Xylocaine 1% With Epinephrine 1:100,000) Confirm Administered Dose 20 ml .ROUTE .STK-MED ONE Stop: 06/01/17 00:12 Last Admin: 06/01/17 00:55 Dose: 5 ml Midazolam HCl (Versed 1 Mg/Ml) Confirm Administered Dose 2 mg .ROUTE .STK-MED ONE Stop: 06/01/17 00:28 Ondansetron HCl (Zofran) 4 mg IVPUSH ONETIME ONE Stop: 05/31/17 20:59 Last Admin: 05/31/17 21:32 Dose: 4 mg Ondansetron HCl (Zofran) Confirm Administered Dose 4 mg .ROUTE .STK-MED ONE Stop: 06/01/17 00:28 Propofol (Diprivan 20 Ml) Confirm Administered Dose 200 mg .ROUTE .STK-MED ONE Stop: 06/01/17 00:28 Rocuronium [place] (Zemuron) Confirm Administered Dose 50 mg .ROUTE .STK-MED ONE Stop: 06/01/17 00:28 Sodium Chloride (Saline Flush) 10 ml FLUSH ASDIRECTED PRN PRN Reason: Keep Vein Open - Exam Wound/Incisions: Dressing Dry and Intact GI/Abdominal Exam: Non-Tender - Problem List & Annotations (1) Appendicitis SNOMED Code(s): 10084942 Code(s): K37 - UNSPECIFIED APPENDICITIS Status: Resolved Current Visit: Yes Qualifiers: Appendicitis type: acute appendicitis Acute appendicitis type: with localized peritonitis Qualified Code(s): K35.3 - Acute appendicitis with localized peritonitis - Problem List Review Problem List Initiated/Reviewed/Updated: Yes - My Orders Last 24 Hours: Active Orders 24 hr Category Date Time Status Admission Status [Patient Status] [ADT] Routine ADT 06/01/17 01:00 Active Antiembolic Devices [RC] PER UNIT ROUTINE Care 05/31/17 23:51 Active Communication Order [RC] ROUTINE Care 06/01/17 01:55 Active Cooling Warming Measures [RC] ASDIRECTED Care 06/01/17 01:55 Active Notify Provider [RC] ASDIRECTED Care 06/01/17 01:55 Active Oxygen Therapy [RC] ASDIRECTED Care 06/01/17 01:55 Active Patient to Empty Bladder [RC] ASDIRECTED Care 05/31/17 23:49 Active Peripheral IV Care [RC] . DIRECTED Care 05/31/17 23:51 Active Pulse Oximetry [RC] ASDIRECTED Care 06/01/17 01:55 Active Ready for Discharge [RC] PER UNIT ROUTINE Care 06/01/17 07:32 Ordered Verify Patient Consent Obtain [RC] ASDIRECTED Care 05/31/17 23:49 Active Regular Diet [DIET] Diet 06/01/17 Breakfast Active Acetaminophen/oxyCODONE [Percocet 325-5 MG] Med 06/01/17 01:52 Active 1 tab PO Q4H PRN HYDROmorphone [Dilaudid] Med 06/01/17 01:50 Active 0.5 mg IV Q2H PRN Lactated Ringers [Ringers, Lactated] 1,000 ml Med 06/01/17 03:00 Active IV ASDIRECTED Ondansetron [Zofran] Med 06/01/17 01:51 Active 4 mg IVPUSH Q6H PRN Sodium Chloride 0.9% [Normal Saline] 1,000 ml Med 05/31/17 23:45 Active IV ASDIRECTED Sodium Chloride 0.9% [Saline Flush] Med 05/31/17 20:57 Active 10 ml FLUSH ASDIRECTED PRN cefOXitin [Mefoxin in Dextrose,Iso-Osm 2 GM/50 ML] 2 gm Med 06/01/17 06:00 Active Premix Bag 1 bag IV Q6HR [id number] [Sublimaze] Med 06/01/17 01:56 Active 50 mcg IVPUSH Q5M PRN Peripheral IV Insertion Adult [OM.PC] Routine Oth 05/31/17 23:49 Ordered Peripheral IV Insertion Adult [OM.PC] Stat Oth 05/31/17 20:57 Ordered Schedule Procedure [COMM] Routine Oth 05/31/17 23:49 Ordered Sequential Compression Device [OM.PC] Routine Oth 05/31/17 23:49 Ordered Resuscitation Status Routine Resus Stat 05/31/17 23:49 Ordered Medication Orders Fentanyl (Sublimaze) 50 mcg IVPUSH Q5M PRN PRN Reason: PAIN Last Admin: 06/01/17 02:05 Dose: 50 mcg Hydromorphone HCl (Dilaudid) 0.5 mg IV Q2H PRN PRN Reason: Pain Sodium Chloride (Normal Saline) 1,000 mls @ 125 mls/hr IV ASDIRECTED [facility] Cefoxitin Sodium 2 gm/ Premix 50 mls @ 100 mls/hr IV Q6HR [facility] Last Admin: 06/01/17 05:49 Dose: 100 mls/hr Lactated Ringer's (Ringers, Lactated) 1,000 mls @ 125 mls/hr IV ASDIRECTED [facility] Last Admin: 06/01/17 02:30 Dose: 125 mls/hr Ondansetron HCl (Zofran) 4 mg IVPUSH Q6H PRN PRN Reason: Nausea Oxycodone/Acetaminophen (Percocet 325-5 Mg) 1 tab PO Q4H PRN PRN Reason: Pain Last Admin: 06/01/17 04:47 Dose: 1 tab Sodium Chloride (Saline Flush) 10 ml FLUSH ASDIRECTED PRN PRN Reason: Keep Vein Open Last Admin: 05/31/17 23:01 Dose: 10 ml - Assessment Assessment (Free Text/Narrative):: Ready for discharge. - Plan Plan (Free Text/Narrative):: Plan discharge today.
--- NOTE | 2017-06-01 07:40 | PCM48HPAN ---
Post Anesthesia Note - EVALUATION WITHIN 48HRS OF ANESTHETIC Vital Signs in Normal Range: Yes Patient Participated in Evaluation: Yes Respiratory Function Stable: Yes Airway Patent: Yes Cardiovascular Function Stable: Yes Hydration Status Stable: Yes Pain Control Satisfactory: Yes Nausea and Vomiting Control Satisfactory: Yes Mental Status Recovered: Yes
== END 2017-06-01 08:23 | disposition home or self-care (01) ==
LOC: JD.ED 20:33 → JD.SDS 06-01 00:45 → MERGE 06-01 00:45 → JD.OB 06-01 03:16 → JD.SDS 06-01 08:23
PROVIDERS: ATTEND Surgery
DX: K35.3 Acute appendicitis with localized peritonitis (principal); Z88.2 Allergy status to sulfonamides; Z79.899 Other long term (current) drug therapy
CPT/HCPCS: 36415; 44970; 74177; 80053; 81001; 84703; 85025; 86140; 96361; 96365; 96375; 99285; A9270; J0694; J1170; J1200; J2250; J2405; J3010; J7040; J7050; J7120; Q9963; Q9967; J2704